=== PATIENT | female | born 1990 | race Caucasian/White ===

== ENCOUNTER → 2020-01-18 | Outpatient (CLI) | payer BC | LOC: ZCOL.LAB 14:37 | DX: Z20.828 Contact with and (suspected) exposure to other viral communicable diseases (principal) ==

== ENCOUNTER → 2020-01-19 | Outpatient (CLI) | payer BC | LOC: COL.RAD 14:31 | DX: S82.251A Displaced comminuted fracture of shaft of right tibia, initial encounter for closed fracture (principal) ==

== ENCOUNTER → 2020-02-01 | Outpatient (CLI) | payer BC | LOC: COL.RAD 10:03 | DX: M25.571 Pain in right ankle and joints of right foot (principal); Z98.890 Other specified postprocedural states | CPT/HCPCS: J3301; Q9967 ==

== ENCOUNTER 2020-09-26 10:51 | Outpatient (RCR) | payer OTHER | END 2020-09-27 14:05 | LOC: WSOH 10:51 | DX: S61.431A Puncture wound without foreign body of right hand, initial encounter (principal); F41.9 Anxiety disorder, unspecified; F32.9 Major depressive disorder, single episode, unspecified; E03.9 Hypothyroidism, unspecified; J45.909 Unspecified asthma, uncomplicated; S94.91XA Injury of unspecified nerve at ankle and foot level, right leg, initial encounter; Z98.890 Other specified postprocedural states; Z90.49 Acquired absence of other specified parts of digestive tract; Z90.89 Acquired absence of other organs; Z79.899 Other long term (current) drug therapy; W54.0XXA Bitten by dog, initial encounter; Y99.0 Civilian activity done for income or pay ==

== ENCOUNTER 2020-12-12 05:21 | Emergency (ER) | payer BC, MEDICAID ==
[~2020-12-12] VITALS: Ht 157.5 cm; Wt 118.6 kg
[2020-12-12 06:11] LABS: BASO # 0.1 (0.0-0.2); BASO % 0.7 % (0.0-2.0); EOS # 0.3 (0.0-0.7); EOS % 2.6 % (0-4.0); GRAN % 65.2 % (42.2-75.2); HEMATOCRIT 41.5 % (37.0-47.0); HEMOGLOBIN 13.8 g/dl (12.5-16.0); LYMPH # 2.6 (1.2-3.4); LYMPH % 24.5 % (20.0-51.0); MEAN CELL VOLUME 90 fl (80.0-100.0); MEAN CORPUSCULAR HEMOGLOBIN 30 pg (27.0-31.0); MEAN CORPUSCULAR HGB CONC 33 g/dl (33.0-37.0); MEAN PLATELET VOLUME 9.8 fl (7.4-10.4); MONO # 0.7 (0.1-0.6); MONO % 6.5 % (1.7-9.3); PLATELET COUNT 318 K/mm3 (130-400); RED BLOOD COUNT 4.62 M/mm3 (4.10-5.30); REDCELL DISTRIBUTION WIDTH-CV 13.4 % (11.5-14.5)
[2020-12-12] MEDS ORDERED: PROVERA 10MG10 MG PO (06:11)
[2020-12-12] MEDS ORDERED: FERROUSAL325 MG PO (06:11)
[2020-12-12] MEDS ORDERED: SINGULAIR 110 MG/TAB PO (06:12)
[2020-12-12] MEDS ORDERED: ZOLOFT 100MG100 MG PO (06:13)
[2020-12-12] MEDS ORDERED: NEURONTIN300 MG/CAP PO (06:13)
[2020-12-12] MEDS ORDERED: XANAX 0.5MG0.5 MG PO (06:14)
[2020-12-12] MEDS ORDERED: BUSPAR10 MG PO (06:15)
[2020-12-12] MEDS ORDERED: ZOVIRAX400 MG PO (06:15)
[2020-12-12 07:21] LABS: ALANINE AMINOTRANSFERASE 9 U/L (4-34); ALKALINE PHOSPHATASE 52 U/L (50-136); ANION GAP 8 mmol/L (7-16); AST,SGOT 15 U/L (15-37); BILIRUBIN,TOTAL < 0.1 mg/dL (0.0-1.0); BLOOD UREA NITROGEN 7 mg/dL (7-17); CALCIUM 6.8 mg/dL (8.4-10.2); CARBON DIOXIDE 18 mmol/L (22-30); CHLORIDE 115 mmol/L (98-107); CREATININE, serum 0.43 (0.52-1.25); GLUCOSE 74 mg/dL (74-106); POTASSIUM 3.3 mmol/L (3.4-5.0); SODIUM 140 mmol/L (137-145); TOTAL PROTEIN 5.8 gm/dL (6.4-8.2)
[2020-12-12] MEDS ORDERED: ZOFRAN ODT4 MG PO (07:50)
[2020-12-12 07:59] VITALS: BP 107/86; PULSE 71; TEMP 97.8
== END 2020-12-12 07:59 | disposition home or self-care (01) ==
LOC: COL.ER 05:21
PROVIDERS: Emergency Medicine
DX: R19.7 Diarrhea, unspecified (principal); R53.81 Other malaise; N92.1 Excessive and frequent menstruation with irregular cycle; R55 Syncope and collapse; I49.9 Cardiac arrhythmia, unspecified; D50.9 Iron deficiency anemia, unspecified; Z88.6 Allergy status to analgesic agent
CPT/HCPCS: J7030